=== PATIENT | male | born 1995 | race Caucasian/White ===

== ENCOUNTER 2017-01-29 07:03 | Day surgery (SDC) | payer OTHER ==
--- NOTE | 2017-01-21 00:21 | HP ---
PREOPERATIVE HISTORY AND PHYSICAL: DATE OF ADMISSION/SURGERY: 01/29/17 DATE OF OFFICE VISIT: 01/19/17 ATTENDING SURGEON: Dr. Vanna Caicedo.* (DICTATED BY AARON ALEGRIA) PROCEDURE: Right shoulder arthroscopic labral repair, possible subpectoral biceps tenodesis. CHIEF COMPLAINT: Right shoulder instability. HISTORY OF PRESENT ILLNESS: Nakul is a 21-year-old male. 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 He is originally from [place], [place]. He is right-hand dominant. He presents to the clinic for right shoulder pain and instability. The patient states that he dislocated his right shoulder one time in high school and then he felt his shoulder subluxed when he was sitting, but it never fully dislocated again until 2 days ago when he was tackling another player and his right arm dislocated. He had immediate numbness, tingling, and pain in his arm. Now, he has a soreness in deeper aspects of his shoulder, he rates as a 3/10. That is improving. Prior to the season, he had physical therapy, which increased his right shoulder strength; however, he continued to sublux at practice. He described the pain is deep, achy pain in the anterior and posterior aspects of his shoulder. He is not requiring any pain medication. He denies current numbness or tingling. He denies fevers or chills. PAST MEDICAL HISTORY: No current problems. PAST SURGICAL HISTORY: [place] teeth removal. MEDICATIONS: No active medications. ALLERGIES: PENICILLIN. FAMILY HISTORY: Denies pertinent family history. SOCIAL HISTORY: He lives with his roommate. He is a [employer] student. He denies tobacco use or alcohol use. He exercises regularly. He is right-hand dominant. REVIEW OF SYSTEMS: A 14-point review of systems was reviewed with the patient. Positive for current complaint. Otherwise, negative. PHYSICAL EXAMINATION GENERAL: Well-developed, well-nourished, 21-year-old male, in no acute distress. Alert and oriented x3. Appropriate mood and affect. VITAL SIGNS: Height 77, weight 282, pulse 58, blood pressure 114/73, respiratory rate 15, temperature 97.5, BMI 33.4. HEENT: Normocephalic, atraumatic. PERRLA. Throat: Clear. NECK: Supple. PULMONARY: Lungs are clear to auscultation bilaterally. No wheezing, rhonchi, or rales. CARDIO: Regular rate and rhythm. S1 and S2. No murmurs, rubs, or gallops. No edema. ABDOMEN: Positive bowel sounds, soft, and nontender. NEURO: Alert and oriented x3. Cranial nerves grossly intact. Sensation is intact to light touch. MUSCULOSKELETAL: Right upper extremity: Skin is intact. No warmth or erythema. Tenderness to palpation over the anterior joint line. Forward flexion to 180, abduction to 180 with some pain. External rotation to 65, internal rotation to T10. +5/5 strength in supraspinatus, subscapularis, and bear hug with minimal pain. Instability test was avoided due to recent dislocation. +2 radial pulse. Sensation is intact to light touch distally. Left upper extremity: Skin is intact. No warmth or erythema. Nontender to palpation. Full pain free range of motion. +5/5 strength on rotator cuff testing. +2 radial pulse. Sensation is intact to light touch distally. DIAGNOSTIC STUDIES: MRI of the right shoulder revealed anterior and posterior labral tear. IMPRESSION: Right shoulder labral tear. PLAN: The patient is scheduled to undergo a right shoulder arthroscopic labral repair with possible subpectoral biceps tenodesis with Dr. Caicedo on 01/29/17. Risks of surgery to include infection, injury to blood vessels, nerves, surrounding structures, bleeding, risk of anesthesia, stiffness, need for further surgery, retear of the labrum, persistent pain and scarring were discussed with the patient, he has agreed to undergo surgery. The surgery will be performed next week to allow for the pain from the most recent dislocation to decrease. He will follow up in 10 to 14 days postoperative for followup and suture removal. Percocet will be used for postop pain management. AARON ALEGRIA [id number]/[facility] #: [id number] [facility]ITALJf
[~2017-01-29 07:03] MED LIST: Buffered Lidocaine 0.9% SYRIN* 5 ML/SYR SYRINGE INTRADERM ONE; Buffered Lidocaine 0.9% SYRIN* 5 ML/SYR SYRINGE ONE; Clindamycin 900 MG IVPREMIX(* 900 MG/50 ML SDV IV ONE; Dexamethasone IV* 4 MG/ML 1 ML (4 MG) IV SLOW PU ONE; Dexamethasone IV* 4 MG/ML 1 ML (4 MG) ONE; Famotidine IV* 10 MG/ML 2 ML (20 mg) IV ONE; Famotidine IV* 10 MG/ML 2 ML (20 mg) ONE
[2017-01-29] MEDS ORDERED: ROPIVACAINE 5 MG/ML 30 ML BTL (0.5%) ONE (08:05)
[2017-01-29] MEDS ORDERED: Propofol* 10 MG/ML 20 ML BTL IV PUSH ONE (08:05)
[2017-01-29] MEDS ORDERED: Ondansetron INJ* 2 MG/ML VIAL ONE (08:05)
[2017-01-29] MEDS ORDERED: Ketorolac INJ* 30 MG/ML 1 ML VIAL ONE (08:05)
[2017-01-29] MEDS ORDERED: Midazolam* 1 MG/ML 5 ML VIAL (5 MG) ONE (08:06)
[2017-01-29] MEDS ORDERED: fentaNYL* 50 MCG/ML 2 ML VIAL (100 MCG VIAL) ONE ×2 (08:06→08:47)
[2017-01-29] MEDS ORDERED: Atracurium* 10 MG/ML 10 ML VIAL ONE (08:07)
[2017-01-29] MEDS ORDERED: Bupivacaine 0.25% SDV* 30 ML ONE (08:27)
[2017-01-29] MEDS ORDERED: Glycopyrrolate IV* 0.2 MG/ML 1 ML VIAL ONE (08:27)
[2017-01-29] MEDS ORDERED: DiMENhydriNATE IV* 50 MG/ML VIAL IV PUSH PRN (08:34)
[2017-01-29] MEDS ORDERED: oxyCODONE/Acetamin 5/325 MG* TAB PO PRN (08:34)
[2017-01-29] MEDS ORDERED: fentaNYL* 50 MCG/ML 2 ML VIAL (100 MCG VIAL) IV PRN (08:34)
[2017-01-29] MEDS ORDERED: Ondansetron INJ* 2 MG/ML VIAL IV PRN (08:34)
[2017-01-29] MEDS ORDERED: HYDROmorphone* 1 MG/ML 1 ML SYR IV PRN (08:34)
[2017-01-29] MEDS ORDERED: Atropine 1MG/ML INJ* 1 ML VIAL ONE (10:00)
[2017-01-29] MEDS ORDERED: EPHEDrine (Pressors)* 50 MG/ML VIAL ONE (10:02)
[2017-01-29 13:44] VITALS: BP 124/66
--- NOTE | 2017-01-30 08:40 | OP ---
CC: Dr. Mcdermott * DATE OF OPERATION: 01/29/17 - [facility] DATE OF : [birth year] SURGEON: Vanna Caicedo MD RANGE OPERATOR: AARON Bain. An title i instructional assistant was needed for the entirety of the case to help with positioning, retraction, and was utilized throughout all portions of the case. ANESTHESIOLOGIST: Júnior Smith MD ANESTHESIA: General interscalene block. PRE-OP DIAGNOSIS: Right shoulder instability with possible biceps tendinitis. POST-OP DIAGNOSES: 1. Partial thickness tear of the rotator cuff. 2. Anterior posterior labral tearing. 3. Reverse Hill-Sachs defect with mild chondrosis. 4. Bicipital tendinitis. OPERATIVE PROCEDURE: Right shoulder arthroscopy with: 1. Extensive glenohumeral debridement including chondroplasty as well as debridement of supraspinatus tendon. 2. Anterior posterior labral repair. 3. Subpectoral biceps tenodesis. INDICATIONS: Nakul Fernandez is a 21-year-old male who has had several episodes of subluxation and at least two dislocations. 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 He has most recent dislocation two weeks ago. He had immediate numbness and tingling, this required reduction. He did physical therapy but he has noticed subluxing at practice. We reviewed the risks and benefits to surgery versus nonoperative treatment and we have elected to proceed with operative treatment. Risks include, but are not limited to, bleeding; infection; damage to nerves, vessels , surrounding structures; wound nonhealing; persistent pain; need for further surgery; scarring; stiffness; incomplete relief of symptoms; worsening arthritis ; risk of anesthesia; risk of DVT; failure of the repair; risk of dislocation as well as fracture. He elected to proceed. IMPLANTS USED: Five [employer] Bioraptors as well as one 2.8-mm Q-Fix. COMPLICATIONS: None. ESTIMATED BLOOD LOSS: Minimal. DESCRIPTION OF PROCEDURE: The patient was greeted in the preoperative area by the attending surgeon and the correct extremity was marked and consent was confirmed. The patient underwent interscalene nerve block by the anesthesiologist. After which, the patient was brought back to the operating suite where he was placed in supine position on the operating table and then underwent general anesthesia with endotracheal intubation, after which the patient was placed in left lateral decubitus position with all bony prominences padded. He was supported with the peg board. The right arm was draped unsterile from traction with 10 pounds of traction. The right shoulder was prepped and draped in usual sterile fashion with chlorhexidine, soap scrub, and alcohol wipe and then a final prep with ChloraPrep. After appropriate surgical pause indicating side, site and procedure, administration of antibiotics, the standard postero-lateral port was made sharply with 11 blade. The scope was introduced into the joint and the joint was examined. There was abundant hyperemia and synovitis in the joint. The undersurface of the rotator cuff had partial thickness tearing with an unstable flap. The biceps was subluxed out of the groove. The shoulder was sitting out anteriorly on the cusp of the anterior glenoid. There was evidence of anterior , inferior, and posterior tearing with flaps. There was evidence of reverse Hill-Sachs lesion with grade 2 chondrosis. The low anterior portal was made in an outside-in fashion using an 18- gauge needle for localization. A large cannula was placed at that portal. Then, a second smaller 5-mm cannula was placed in the superior portion of the interval. Once the cannula was replaced, the shoulder was then gently positioned with traction to expose the anteroinferior labrum and there was a positive drive-through sign. A shaver was used to debride back the unstable flaps of the labrum, unstable flaps in the rotator cuff, and then biceps was taken through range of motion. Again, it would sublux and therefore this was tenotomized. The stump was then debrided back to a stable portion after which, an elevator was used to gently elevate the labral loss of the anterior aspect of the glenoid. This had evidence of previous tearing and had scarred back medially. There was a bony piece evident inferiorly, which was carefully elevated to help bring the labrum backup. Then , a red ball rasp was then used as the shaver was used to prepare the glenoid to allow for good bony bleeding edge. Once appropriate amount of bleeding was obtained, the capsule was then rasped as well using a double-sided rasp. Once the glenoid and labral surfaces were prepared, the anchors began to be placed. The first anchor was placed in the 5:30 position with excellent purchase. The sutures were passed in the horizontal mattress configuration with care to try to reapproximate the bony piece that was encapsulated in the labrum as well. This was then tied down using arthroscopic knot tying. A second anchor was placed in the 4:30 position and passed in a simple configuration to allow for adventist of the anterior labrum and the bumper and then the last anchor was placed at 3:30 position. This helped to restore the shoulder position with respect to the glenoid properly and further helped to remove drive-through sign. Attention was directed to the posterior labrum. The scope was positioned in the anterior portal and there was evidence of posterior labral tear. This evident from approximately the 6 o'clock position to the 8 o'clock position and it was determined that this needed to be repaired. An elevator was used to gently elevate the labrum. The red ball rasp was used to aggravate the bone to allow for good bony bleeding edge. The shaver was used to debride any loose tissue and 2 anchors were placed at 7 o'clock and the 8 o'clock position. Sutures were passed in a simple configuration and tied down using standard arthroscopic knot tying. The anchors were all placed with excellent purchase. This helped to reapproximate and restore the labrum to its normal position and again the shoulder was checked by changing to various portals and the shoulder was sitting appropriately in the center of the glenoid. There was no evidence of subluxation or dislocation. At this point, the attention was directed to the biceps. The anterior aspect of the shoulder was re-prepped with ChloraPrep. A 15-blade was then used to incise the skin in line with the biceps tendon encompassing the inferior two-thirds of the pec tendon. The soft tissues were carefully dissected using Metzenbaum scissors until the fascia was identified, then the remainder of dissection was done bluntly. Once the pec was identified, it was retracted superiorly. Bicipital groove was palpated. The biceps was then brought through the wound and it was found to have abundant synovitis and inflammation. The bicipital groove was then prepped and draped in the usual fashion with electrocautery device, then the red ball rasp and the osteotome to allow for good bony bleeding bed. The Q-Fix guide was then placed and drilled unicortically. The Q-Fix anchor was deployed with excellent purchase and the sutures were passed through the biceps tendon approximately 1 cm proximal to the musculotendinous junction. The excess stump was sharply excised and then the biceps was shuttled back to the wound and tied down. The wounds were copiously irrigated with sterile saline. The portals were closed with 3-0 nylon. The anterior wound was closed in layers of 2-0 Vicryl and 3-0 Monocryl. Sterile dressings were applied. The anterior aspect of the wound was injected with 20 cc of 0.25% Marcaine plain. Sterile dressings were applied. A Cryo/Cuff and an UltraSling were applied. He was awoken from anesthesia and transferred to PACU in stable condition. POSTOPERATIVE PLAN: He will be nonweightbearing for 6 weeks. He will be in the sling, but he will start physical therapy at 4 weeks beginning with passive range of motion. He will be allowed elbow, wrist, and hand range of motion. He will be discharged with pain medication as well as antibiotics. I will see him back in 10 to 14 days. [id number]/[facility] #: [id number] MTDD
== END 2017-01-29 13:57 | disposition home or self-care (01) ==
LOC: OR 07:03
PROVIDERS: ATTEND Orthopaedic Surgery
DX: S43.491A Other sprain of right shoulder joint, initial encounter (principal); S46.011A Strain of muscle(s) and tendon(s) of the rotator cuff of right shoulder, initial encounter; M75.21 Bicipital tendinitis, right shoulder; Y93.61 Activity, american tackle football; Y92.321 Football field as the place of occurrence of the external cause
CPT/HCPCS: J0461; J1100; J1885; J2250; J2405; J2704; J2795; J3010

== ENCOUNTER 2018-05-16 12:13 | Day surgery (SDC) | payer OTHER ==
[~2018-05-16 12:13] MED LIST changes: -Buffered Lidocaine 0.9% SYRIN* 5 ML/SYR SYRINGE ONE; -Clindamycin 900 MG IVPREMIX(* 900 MG/50 ML SDV IV ONE; +Lactated Ringers 1000 ML Bag* 1,000 ML IV SCH; +Lidocaine 2% PF * 5 ML VIAL ONE; +Midazolam* 1 MG/ML 5 ML VIAL (5 MG) ONE; +Propofol* 10 MG/ML 20 ML BTL ONE; +fentaNYL* 50 MCG/ML 2 ML VIAL (100 MCG VIAL) ONE
[2018-05-16] MEDS ORDERED: Clindamycin 900 MG/D5W BAG(*) 900 MG/50 ML BAG IVPB ONE (12:29)
[2018-05-16] MEDS ORDERED: Lidocaine 1% MPF wEPI 200,000* 30 ML SDV ONE (12:58)
[2018-05-16] MEDS ORDERED: ROPIVACAINE 5 MG/ML 30 ML BTL (0.5%) ONE (12:59)
[2018-05-16] MEDS ORDERED: Propofol* 10 MG/ML 20 ML BTL ONE (12:59)
[2018-05-16] MEDS ORDERED: Acetaminophen TAB* 325 MG PO PRN (14:04)
[2018-05-16] MEDS ORDERED: Naloxone* 0.4 MG/ML 1 ML VIAL IV PRN (14:04)
[2018-05-16] MEDS ORDERED: fentaNYL* 50 MCG/ML 2 ML VIAL (100 MCG VIAL) IV PRN (14:04)
[2018-05-16] MEDS ORDERED: PROCHLORPERAZINE INJ 5 MG/ML 2 ML VIAL IV PRN (14:04)
[2018-05-16] MEDS ORDERED: DiMENhydriNATE IV* 50 MG/ML VIAL IV PUSH PRN (14:04)
[2018-05-16] MEDS ORDERED: Ketorolac INJ* 30 MG/ML 1 ML VIAL IV PRN (14:04)
[2018-05-16] MEDS ORDERED: oxyCODONE/Acetamin 5/325 MG* TAB PO PRN (14:04)
[2018-05-16] MEDS ORDERED: Ondansetron INJ* 2 MG/ML VIAL ONE (14:20)
[2018-05-16] MEDS ORDERED: oxyCODONE/Acetamin 5/325 MG* TAB ONE (15:34)
[2018-05-16 15:43] VITALS: BP 130/56
--- NOTE | 2018-05-29 05:20 | OP ---
CC: Dr. Treadwell DATE OF OPERATION: 05/16/18 DATE OF : [birth year] SURGEON: Vanna Caicedo MD HOSPITALITY ASSOCIATE: No assistant branch manager. ANESTHESIOLOGIST: Dr. Hughes. ANESTHESIA: General. PRE-OP DIAGNOSES: Left knee loose bodies as well as possible chondral defect. POST-OP DIAGNOSES: Left knee loose bodies as well as possible chondral defect. OPERATIVE PROCEDURE: Right knee arthroscopy with: 1. Removal of loose bodies x3 greater than 5 mm. 2. Chondroplasty of the patella. 3. Microfracture of the lateral femoral condyle. 4. Microfracture with bone marrow aspirate and osteochondral drilling. COMPLICATIONS: None. ESTIMATED BLOOD LOSS: Minimal. 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 He had some mild locking symptoms. He had an MRI that demonstrated several loose bodies as well as chondrosis in multiple areas. Risks and benefits of surgery were discussed at length including, but not limited to bleeding, infection, damage to nerves, vessels, surrounding structures, wound nonhealing, persistent pain, need for further surgery, scarring, stiffness, incomplete relief of symptoms, risk of anesthesia , need for further surgery, worsening arthritis. The patient has elected to proceed with surgery. DESCRIPTION OF PROCEDURE: The patient was greeted in the preoperative area by the attending surgeon. The correct extremity was marked and consent was confirmed. The patient was then brought back to the operating suite, where he was placed in supine position on the operating table. He underwent general anesthesia and LMA intubation, after which he was appropriately positioned on the bed. Lateral post was positioned. Nonsterile tourniquet was placed high on the proximal thigh. The left leg was prepped and draped in usual sterile fashion beginning with chlorhexidine soap, scrub, alcohol wipe, and final prep with ChloraPrep. After appropriate surgical pause indicating side, site, procedure, and administration of antibiotics, the knee was intraarticularly injected with 1% lidocaine with epi. The anterolateral portal was made sharply with a 11 blade. Scope was then introduced into the joint, joint was examined. The anteromedial port was made in outside-in fashion with needle localization. There were at least 3 loose bodies that were evident immediately, which were then removed using the alex and the biters. One was in the patellofemoral joint, one appeared to be in the medial femoral condyle, a smaller one was in the gutter. There were numerous tiny pieces as well. At this point, the knee was placed in full extension. The patellofemoral joint was examined. There was evidence of grade 2 changes of the patella, which was reviewed back in the central portion of patella. The trochlea for the most part had grade 0 changes except for central bridge which had fissuring and a small area of grade 2 changes, which were also debrided back using shaver. Medial compartment was examined. Medial meniscus was intact. The medial femoral condyle had grade 0 to 1 changes. Medial meniscus was intact. The ACL and PCL were intact. Knee was placed in a [id number] position and lateral meniscus was intact, but there was an evidence of a full-thickness grade 4 lesion. This was approximately 1 cm x 1.5 cm. This was on the very lateral aspect on weightbearing zone. It was isolated just above lateral femoral condyle. Lateral plateau had grade 0 to 1 changes. At this point, decision was made to consider BioCartilage. This did not have a good shoulder and that cartilage would be contraindicated because there was no shoulder to keep it all in place and it was a small defect. The decision was made to proceed with a microfracture. A [place] awl was then used to do a microfracture in the center and the periphery of the lesion. Once all loose debris was removed from the joint, the water was turned off and there was a definite evidence of bone marrow aspirate with blood returning from the microfracture site. Final images were obtained. The wound was then copiously irrigated with sterile saline. The portals were closed with 3-0 nylon. The knee was intraarticularly injected with ropivacaine 0.2%. Sterile dressings were applied as well as the Cryo/Cuff. He was awoken from anesthesia, transferred to PACU in stable condition. POSTOPERATIVE PLAN: He will be nonweightbearing for 4 weeks and partial weightbearing for 4 to 6, range of motion as tolerated. Discharged on pain medication. DVT prophylaxis was considered, but deferred. He will been on 2 aspirin b.i.d. as he is going to go back home and he will need it for traveling. We will see me back in the office when he is back in town. [id number]/[facility] #: [id number] RICHAR
== END 2018-05-16 15:51 | disposition home or self-care (01) ==
LOC: OREAST 12:13
PROVIDERS: ATTEND Orthopaedic Surgery
DX: M23.42 Loose body in knee, left knee (principal); M93.262 Osteochondritis dissecans, left knee
CPT/HCPCS: A9270-GY; J1100; J2001; J2250; J2405; J2704; J2795; J3010